=== PATIENT | female | born 1975 | race Caucasian/White ===

== ENCOUNTER → 2019-01-15 | Outpatient (CLI) | payer MEDICARE, MEDICAID ==
[~2019-01-15] MED LIST: CALCIUM CARBONATE PO; ICY HOT 7.6%-291 STI TP; MULTI JUNIOR W/1 TAB PO; OSTEO-BI-FLEX 21 TAB PO; [UNRECOGNIZED DRUG - OTHER] MM; [UNRECOGNIZED DRUG - REMARK] PO
== END ==
LOC: MC.RAD 11:06
DX: Z12.31 Encounter for screening mammogram for malignant neoplasm of breast (principal)

== ENCOUNTER → 2021-01-07 | Outpatient (CLI) | payer MEDICARE, MEDICAID | LOC: MC.RAD 11:30 | DX: Z12.31 Encounter for screening mammogram for malignant neoplasm of breast (principal) ==

== ENCOUNTER 2023-10-20 09:31 | Outpatient (RCR) | payer MEDICARE, MEDICAID | END 2023-11-01 | disposition home or self-care (01) | LOC: MKS.ESL.PT | DX: M54.50 Low back pain, unspecified (principal) ==

== ENCOUNTER 2023-11-29 10:30 | Outpatient (RCR) | payer MEDICARE, MEDICAID | END 2023-11-30 | disposition home or self-care (01) | LOC: MKS.ESL.PT | DX: M54.50 Low back pain, unspecified (principal) ==